=== PATIENT | female | born 1980 | race Caucasian/White ===

== ENCOUNTER 2022-08-08 13:40 | Emergency (ER) | payer OTHER ==
[2022-08-08 13:50] VITALS: BP 152/90; PULSE 112; RESP 20; TEMP 98.6
--- NOTE | 2022-08-08 14:20 | XR ---
EXAMINATION TYPE: XR wrist complete RT DATE OF EXAM: 08/08/2022 COMPARISON: NONE HISTORY: Pain TECHNIQUE: Four views submitted. FINDINGS: The osseous structures are intact. The joint spaces are preserved and there is no acute fracture or dislocation. IMPRESSION: 1. No definite acute fracture or dislocation if symptoms persist, follow-up study in 7 to 10 days wo uld be suggested
[2022-08-08] MEDS ORDERED: KETOROLAC 15 MG/ML 1 ML VIAL IVP STA (15:32)
--- NOTE | 2022-08-08 15:33 | ED ---
General Adult HPI - General Chief complaint: Extremity Injury, Upper Stated complaint: R wrist injury Time Seen by Provider: 08/08/22 15:15 Source: patient, RN notes reviewed, old records reviewed Mode of arrival: ambulatory Limitations: no limitations - History of Present Illness Initial comments: Patient is a 41-year-old female with past medical history remarkable for polysubstance abuse who presents emergency Department complaining of right wrist pain. Patient states she fell and landed on outstretched right wrist. This occurred yesterday. Presents today for further evaluation. States she has pain in a recently distribution around her right wrist. His normal motion of her fingers and hand otherwise. Pain with movement of the wrist. No injury to the elbow or shoulder. Persistent swelling. Denies any numbness. Presents for further evaluation at this time. Presents from her rehab facility [facility]. - Related Data Allergies Allergy/AdvReac Type Severity Reaction Status Date / Time codeine Allergy Rash/Hives Verified 08/08/22 13:50 Penicillins Allergy Rash/Hives Verified 08/08/22 13:50 Review of Systems ROS Statement: Those systems with pertinent positive or pertinent negative responses have been documented in the HPI. Review of Systems: CONST: Denies fever EYES: Denies blurry vision ENT: Denies nasal congestion C/V: Denies Chest pain RESP: Denies shortness of breath GI: Denies abdominal pain : Denies dysuria SKIN: Denies rash. MSK: Endorses right wrist pain NEURO: Denies headache ROS Other: All systems not noted in ROS Statement are negative. Past Medical History Past Medical History: Hypertension History of Any Multi-Drug Resistant Organisms: None Reported Past Surgical History: No Surgical Hx Reported Past Psychological History: ADD/ADHD Smoking Status: Current every day smoker Past Alcohol Use History: Heavy Past Drug Use History: Methamphetamine General Exam - General Exam Comments Initial Comments: General: Appears in mild distress secondary to right wrist pain. HEAD: Normal with no signs of head trauma. EYES: EOMI ENT: Hearing grossly intact, normal oropharynx. RESPIRATORY: No respiratory distress. C/V: Peripheral pulses 2+ and intact throughout. ABD: Nondistended EXT: Reduced range of motion the right wrist secondary to pain. Since some snuffbox tenderness palpation. No obvious deformities. The passive range of motion. Tender diffusely around the right wrist. No focal area. Good range of motion of the fingers. Good approximation intra-abdominal other fingers. SKIN: No rashes or lesions observed on exposed skin. NEURO: Alert and oriented 4. No focal deficits. Limitations: no limitations Course Vital Signs 08/08/22 13:48 Temperature 98.6 F Pulse Rate 112 H Respiratory 20 Rate Blood Pressure 152/90 O2 Sat by Pulse 99 Oximetry Procedures - Orthopedic Splinting/Casting Injury #1 Side: right Upper Extremity Injury Location: wrist Upper Extremity Immobilizer: thumb spica Additional Comments: Patient tolerated the procedure well. Neurovascularly intact distal to the splint. Capillary refill in the right fingertips is less than 2 seconds. Sensation is intact in the right fingertips. Medical Decision Making - Medical Decision Making Based on the patient's presentation and physical exam, I'm concerned for a right wrist sprain. Could have a traumatic injury. She will be given Toradol shot. I evaluated the patient after x-rays were already obtained. As interpreted by me, x-rays show no acute traumatic process. I did the patient. She is breast understanding. Due to her snuffbox tenderness in the right wrist we will place the patient in a thumb spica splint. She was in agreement this plan. She'll be given follow-up with orthopedic surgery. She will collect [facility] afterwards. I instructed her follow up within the next 3-7 days.I did discuss with her that she likely has a right wrist sprain, however I would like her to follow up with orthopedic surgery. Patient tolerated the splinting well. Neurovascularly intact following the procedure distal to the splint. Instructed her to use [id number] analgesia for pain. I instructed the patient to follow up with their PCP in the next 1-3 days. I provided contact information for follow up with orthopedics. I explained that the patient should return to the emergency department if they experience any worsening symptoms. Strict return precautions were discussed with the patient. The patient expressed understanding of these instructions. I answered all questions that the patient had. The patient was discharged home in good condition with their prescriptions and follow up information. Disposition Clinical Impression: Right wrist sprain Disposition: HOME SELF-CARE Condition: Good Instructions (If sedation given, give patient instructions): Wrist Sprain (ED) Is patient prescribed a controlled substance at d/c from ED?: No Referrals: Nonstaff,Physician [Primary Care Provider] - 1-2 days Reji Baker, PAC [[facility] DIRECTOR] - 1-2 days Time of Disposition: 15:35
[2022-08-08] MEDS ORDERED: KETOROLAC 15 MG/ML 1 ML VIAL IM STA (15:45)
== END 2022-08-08 16:04 | disposition home or self-care (01) ==
LOC: EEVIPCON 13:40 → EC 13:40
DX: S63.501A Unspecified sprain of right wrist, initial encounter (principal); I10 Essential (primary) hypertension; F17.200 Nicotine dependence, unspecified, uncomplicated; Z88.0 Allergy status to penicillin; W19.XXXA Unspecified fall, initial encounter
CPT/HCPCS: 29125; 99283